=== PATIENT | male | born 1960 | race Caucasian/White ===

== ENCOUNTER 2019-06-11 17:34 | Emergency (ER) | payer MEDICARE, MEDICAID ==
--- NOTE | 2019-06-11 18:32 | EDM.PDOC ---
ED HPI GENERAL MEDICAL PROBLEM - General Chief Complaint: Cardiovascular Problem Stated Complaint: MED[facility] Time Seen by Provider: 06/11/19 18:20 Source of Information: Reports: Patient, Family, RN History Limitations: Reports: No Limitations - History of Present Illness INITIAL COMMENTS - FREE TEXT/NARRATIVE: 59 yo male with a pHx of ? afib and who lives in [place] was in our area when he developed rapid HR associated with transient CP and some diaphoresis. He arrived in our ER before my shift and received Adenosine by EMS and by the time he arrived here all his sx's were resolved and he is now in NSR. Onset: Today, Sudden Onset Date: 06/11/19 Duration: Minutes:, Resolved Prior to Arrival Location: Reports: Chest Quality: Reports: Dull Severity: Mild Improves with: Reports: Other (rhythm conversion) Worsens with: Reports: Other (unknown) Context: Reports: Other (See HPI) Associated Symptoms: Reports: Chest Pain, Diaphoresis. Denies: Fever/Chills, Nausea/Vomiting, Shortness of Breath, Syncope Treatments [employer]: Reports: Other (see below) (IV Adenosine) - Related Data Allergies Allergy/AdvReac Type Severity Reaction Status Date / Time Penicillins Allergy Rash Verified 06/11/19 17:51 Home Meds: Home Meds Docusate Sodium 100 mg PO BID 06/11/19 [History] Fluticasone Propionate [Flonase] 1 spray NS BID 06/11/19 [History] Phenytoin Sodium Extended [Dilantin] 200 mg PO DAILY 06/11/19 [History] polyethylene glycoL 3350 [MiraLAX] 17 gm PO BID 06/11/19 [History] Past Medical History Cardiovascular History: Reports: Afib Neurological History: Reports: Seizure - Infectious Disease History Infectious Disease History: Reports: Chicken Pox - Past Surgical History GI Surgical History: Reports: Hernia Repair/Other Social & Family History - Tobacco Use Smoking Status *Q: Never Smoker - Caffeine Use Caffeine Use: Reports: Coffee ED ROS GENERAL - Review of Systems Review Of Systems: See Below Constitutional: Reports: No Symptoms HEENT: Reports: No Symptoms Respiratory: Reports: No Symptoms Cardiovascular: Reports: Chest Pain (mild tightness while tachycardic only) Endocrine: Reports: No Symptoms GI/Abdominal: Reports: No Symptoms : Reports: No Symptoms Musculoskeletal: Reports: No Symptoms Skin: Reports: No Symptoms Neurological: Reports: No Symptoms Psychiatric: Reports: No Symptoms ED EXAM, GENERAL - Physical Exam Exam: See Below Exam Limited By: No Limitations General Appearance: Alert, WD/WN, No Apparent Distress Eye Exam: Bilateral Eye: Normal Inspection Ears: Normal External Exam, Normal Canal, Hearing Grossly Normal, Normal TMs Ear Exam: Bilateral Ear: Auricle Normal, Canal Normal, TM normal Nose: Normal Inspection, No Blood Throat/Mouth: Normal Inspection, Normal Lips, Normal Oropharynx, Normal Voice, No Airway Compromise Head: Atraumatic, Normocephalic Neck: Normal Inspection Respiratory/Chest: No Respiratory Distress, Lungs Clear, Normal Breath Sounds, No Accessory Muscle Use, Chest Non-Tender Cardiovascular: Regular Rate, Rhythm, No Edema GI/Abdominal: Normal Bowel Sounds, Soft, Non-Tender, No Distention Back Exam: Normal Inspection. No: CVA Tenderness (R), CVA Tenderness (L) Extremities: Normal Inspection, Normal Range of Motion, Non-Tender, No Pedal Edema Neurological: Alert, Oriented, CN II-XII Intact, Normal Cognition, No Motor/ Sensory Deficits Psychiatric: Normal Affect, Normal Mood Skin Exam: Warm, Dry, Intact, Normal Color, No Rash Course - Vital Signs Last Recorded V/S: Last Vital Signs Temp 35.9 C 06/11/19 17:59 Pulse 97 06/11/19 17:59 Resp 15 06/11/19 17:59 BP 124/92 H 06/11/19 17:59 Pulse Ox 100 06/11/19 17:59 Departure - Departure Time of Disposition: 18:37 Disposition: Home, Self-Care 01 Condition: Good Clinical Impression: Tachycardia Referrals: Issac Viveros MD [Primary Care Provider] - Forms: ED Department Discharge Additional Instructions: Continue usual medications. Keep your follow up with your personal doctor as scheduled. EMS administered Adenosine IV today and this resulted in a resolution of your tachycardia. This would suggest his condition today was Paroxysmal Supraventricular Tachycardia, but is is also possible that he was in atrial fibrillation with a rapid ventricular response and just coincidentally converted to sinus rhythm. Recheck if the rapid heart rate returns. Sepsis Event Note - Evaluation Sepsis Screening Result: No Definite Risk - Focused Exam Vital Signs: Vital Signs Temp Pulse Resp BP Pulse Ox 06/11/19 17:59 35.9 C 97 15 124/92 H 100 06/11/19 17:45 35.9 C 97 15 124/92 H 100 Date Exam was Performed: 06/11/19 Time Exam was Performed: 18:32
== END 2019-06-11 19:00 | disposition home or self-care (01) ==
LOC: JP.ED 17:34
CPT/HCPCS: 99283; 99285